=== PATIENT | female | born 1985 | race Caucasian/White ===

== ENCOUNTER 2018-03-05 10:01 | Day surgery (SDC) | payer MEDICAID ==
[2018-03-05] MEDS ORDERED: SUCCINYLCHOLINE CHLORIDE INJ 200 MG/10 ML VIAL ONE (10:58)
[2018-03-05] MEDS ORDERED: KETAMINE HCL INJ 500 MG/10 ML VIAL ONE (12:17)
[2018-03-05] MEDS ORDERED: DEXAMETHASONE SOD PHOSPHATE INJ 4 MG/1 ML VIAL ONE (12:17)
[2018-03-05] MEDS ORDERED: MIDAZOLAM 2 MG/2 ML INJ ONE (12:17)
[2018-03-05] MEDS ORDERED: ONDANSETRON HCL INJ/PF 4 MG/2 ML SDV ONE (12:17)
[2018-03-05] MEDS ORDERED: PROPOFOL INJ 200 MG/20 ML VIAL IV ONE (12:17)
[2018-03-05] MEDS ORDERED: ACETAMINOPHEN 100 ML IV ONE (12:17)
[2018-03-05] MEDS ORDERED: LIDOCAINE 2% INJ-PF (20 MG/ML) 10 ML AMPUL ONE (12:18)
[2018-03-05] MEDS ORDERED: FENTANYL CITRATE INJ/PF 100 MCG/2 ML AMPUL ONE (12:18)
[2018-03-05] MEDS ORDERED: BUPIVACAINE HCL 0.5%/EPI 1:200000 INJ 1.8 ML CARTRIDGE ONE (12:22)
[2018-03-05] MEDS ORDERED: LIDOCAINE 2%/EPINEPHRINE INJ 1.7 ML CARTRIDGE ONE (12:22)
[2018-03-05] MEDS ORDERED: ONDANSETRON HCL INJ/PF 4 MG/2 ML SDV IV PRN (12:53)
[2018-03-05] MEDS ORDERED: MEPERIDINE HCL/PF INJ 25 MG/1 ML DISP.SYRIN IV PRN (12:53)
[2018-03-05] MEDS ORDERED: OXYCODONE-ACETAMINOPHEN 5-325 MG TABLET PO PRN ×2 (12:53)
[2018-03-05] MEDS ORDERED: DIPHENHYDRAMINE HCL 50 MG/ML VIAL IV PRN (12:53)
[2018-03-05] MEDS ORDERED: MORPHINE SULFATE 10 MG/ML INJ IV PRN (12:53)
[2018-03-05] MEDS ORDERED: FENTANYL CITRATE INJ/PF 100 MCG/2 ML AMPUL IV PRN ×3 (12:53)
[2018-03-05] MEDS ORDERED: PROMETHAZINE HCL INJ 25 MG/1 ML VIAL IV PRN ×2 (12:53)
--- NOTE | 2018-03-05 13:24 | Operative Report ---
Operative Report DATE OF SURGERY: 03/05/18 PREOPERATIVE DIAGNOSIS: Dental Caries POSTOPERATIVE DIAGNOSIS: same OPERATION: Surgical extraction of teeth #'s 29,30 SURGEON: NOAM SANTOS ANESTHESIA: GA TISSUE REMOVED OR ALTERED: Teeth to trash COMPLICATIONS: none ESTIMATED BLOOD LOSS: minimal INTRAOPERATIVE FINDINGS: Non restorable teeth #'s 29,30; generalized gingivitis and periodontitis PROCEDURE: The patient was brought into operating room #3 and placed on the operating room table in supine position. General anesthesia was induced via a peripheral IV and continued utilizing endotracheal intubation. The patient was then prepped and draped in the usual fashion for an intraoral procedure. A total of 2 carpules of 2% Lidocaine with 1:100K Epi were delivered to the planned surgical sites via both infiltration and nerve block. The oral cavity and oropharynx were suctioned and a moistened oropharyngeal throat pack was placed. A bite block was used throughout the procedure. A full thickness mucoperisteal flap was elevated. Ostectomy was completed as needed. #30 was sectioned. Teeth were delivered with elevators and forceps. Alveoloplasty was completed using rongeurs and bone files. Sites debrided and irrigated. Mandible intact post op. ROSSY not visualized. Surgifoam was placed into sockets. Wounds reapproximated and sutured with 4-0 chromic gut. The teeth were then brushed with toothpaste and toothbrush. The oral cavity was irrigated and suctioned and found to be free of debris. The throat pack was removed. The oropharynx was suctioned. Gauze packs were placed to aid in continued hemastasis. The patient was awakened from general anesthesia, extubated in the operating room and taken to recovery in spontaneous breathing fashion.
[2018-03-05 15:44] VITALS: BP 141/96
== END 2018-03-05 15:20 | disposition home or self-care (01) ==
LOC: OROUT 10:01
PROVIDERS: ATTEND Dentist Oral and Maxillofacial Surgery
DX: K02.7 Dental root caries (principal); Z88.8 Allergy status to other drugs, medicaments and biological substances; I10 Essential (primary) hypertension; E11.9 Type 2 diabetes mellitus without complications; Z79.84 Long term (current) use of oral hypoglycemic drugs; G40.909 Epilepsy, unspecified, not intractable, without status epilepticus
CPT/HCPCS: 41899; J2250; J3490 ×3; J1100; J3010; J0330; J2405; J2704; J0131; 170